=== PATIENT | female | born 1940 | race Two or more races ===

== ENCOUNTER 2021-03-08 10:52 | Emergency (ER) | payer MEDICARE, MEDICAID, SELFPAY ==
--- NOTE | ~2021-03-08 | CT_ITS ---
EXAMINATION: CT HEAD WITHOUT CONTRAST (STROKE PROTOCOL) CLINICAL INFORMATION: Stroke protocol. COMPARISON: None TECHNIQUE: Contiguous axial imaging was performed from the skull base to vertex without intravenous administration of contrast. This CT examination was performed using dose optimization techniques as appropriate, variously including the following: *Automated exposure control *Adjustment of mA and/or kV according to patient size (this includes techniques or standardized protocols for targeted exams where dose is matched to indication/reason for exam; i.e. extremities or head) *Use of iterative reconstruction technique DLP: 531 mGy-cm FINDINGS: There is some motion artifact present. Patient is status post right frontal/parietal/temporal craniotomy with aneurysm clip seen in place. There are regions of encephalomalacia noted, most prominent within the right temporal fossa which are likely chronic with no intracranial hemorrhage or significant mass effect or midline structure shift identified. There is prominence of the ventricles, sulci, and cisterns consistent with atrophic change. Visualized paranasal sinuses and mastoid air cells unremarkable. CT/CT head for stroke IMPRESSION: Status post right frontal/parietal/temporal craniotomy with aneurysm clip in place and regions of encephalomalacia likely postoperative in nature. No significant mass effect or intracranial hemorrhage appreciated. This critical result was discussed with Dr. Nina at 11:10 AM hours on March 08, 2021. It was ascertained that the content and urgency of the report was understood at the time of direct communication.
--- NOTE | ~2021-03-08 | XR_ITS ---
EXAMINATION: XR CHEST CLINICAL INFORMATION: Left-sided weakness. COMPARISON: None TECHNIQUE: Frontal view of the chest was obtained. FINDINGS: Kyphotic positioning is suboptimal. A 0.8 cm radiopaque density overlies the right apex laterally. The lungs otherwise clear. The heart and mediastinal structures are unremarkable. XR/XR chest 1V IMPRESSION: Probable calcified granuloma overlying the right apex laterally. No acute cardiopulmonary process.
--- NOTE | 2021-03-08 10:57 | ECG_ITS ---
Test Reason : ?STROKE Blood Pressure : / mmHG Vent. Rate : 094 BPM Atrial Rate : 094 BPM P-R Int : 174 ms QRS Dur : 152 ms QT Int : 406 ms P-R-T Axes : 055 -02 118 degrees QTc Int : 507 ms Normal sinus rhythm Left bundle branch block Abnormal ECG No previous ECGs available Referred By: Eris Nina Electronically Signed By:CECILY MCNAMARA MD
[2021-03-08 10:59] VITALS: BP 118/87; PULSE 100; O2SAT 99
--- NOTE | 2021-03-08 11:04 | ED.NEUROSD ---
HPI - Neuro Symptoms/Deficit General Chief Complaint: Altered Mental Status Stated Complaint: arm weakness/eye twitching Time Seen by Provider: 03/08/21 10:56 Source: patient, family (Daughter) and EMS Mode of arrival: EMS Limitations: no limitations History of Present Illness HPI Narrative: 80-year-old female came in by EMS for evaluation of stroke. 80-year-old female with baseline dementia engine speaking only, came from long-term for left-sided focal seizure and twitching of the face, and left upper extremities weakness, patient recently had seizure activity was seen at [facility], then was transferred to [facility] where able to stop the seizure activity. Patient is known to have history of ruptured cerebral aneurysm, status post clipping the aneurysm, with residual left hemiparesis. Patient last seen normal was last night, when she woke up this morning patient had left facial twitching with worsening of the left-sided hemiparesis. Related Data Allergies Allergy/AdvReac Type Severity Reaction Status Date / Time No Known Allergies Allergy Verified 03/08/21 10:56 Review of Systems Review of Systems: All other systems are reviewed and are negative Constitutional: Reports as per HPI and Reports no additional constitutional complaints Eyes: Reports as per HPI and Reports no additional eye complaints Reports system reviewed and no additional complaints, except as documented Cardiovascular: Reports as per HPI and Reports no additional cardiovascular complaints Respiratory: Reports as per HPI and Reports no additional respiratory complaints Gastrointestinal: Reports as per HPI and Reports no additional gastrointestinal complaints Genitourinary: Reports no additional female genitourinary complaints Musculoskeletal: Reports no additional musculoskeletal complaints Skin/Breast: Reports system reviewed and no additional complaints, except as docu Psychiatric: Reports no additional psychiatric complaints Endocrine: Reports no additional endocrine complaints Hematologic/Lymphatic: Reports no additional hematologic/lymphatic complaints Allergic/Immunologic: Reports no additional allergic/immunologic complaints Reports system reviewed and no additional complaints, except as documented and Reports Abnormal speech present [facility] Social History Social History Alcohol intake: never Patient Tobacco Use Status: Never used Tobacco Use of substances other than those prescribed or required for medical reasons: No Advance Directives: Yes Advance Directives Information Provided: Yes Advance Directives on File: No Physical Exam Vital Signs: Vital Signs: Last Vital Signs Temp 98.1 F 03/08/21 11:07 Pulse 96 03/08/21 14:52 Resp 16 07/24/21 14:52 BP 119/69 03/08/21 14:52 Pulse Ox 98 03/08/21 14:52 Body Mass Index 25.4 Vital signs have been reviewed as appeared to be correct. Blood pressure normal. Heart rate normal. Respiration rate normal. Temperature normal. Oxygen saturation normal. Appearance: Left facial focal seizure, patient to not regard examiner or family. Head: Normal external exam. Normocephalic. Atraumatic. No [place] signs noted. No raccoon eyes noted Eyes: PERRLA. EOMI. Conjunctiva and sclera normal. Eyelids normal. ENT: TM's Normal. Pharynx normal. Uvula midline. Moist mucous membranes. No trismus noted. No drooling noted. No muffled voice noted. Neck: Normal inspection. Neck supple. FROM. No adenopathy. Thyroid Normal. No meningeal signs. No neck mass noted. CVS: Normal heart rate and rhythm. Heart sound normal. No murmurs noted. Pulses normal throughout. Respiratory: No respiratory distress. Painless inspiration. Breath sounds normal. No wheezes/rales/rhonchi noted. Chest nontender. No accessory muscle usage noted or decreased air movement noted. Abdomen: Soft and nontender. Bowel sounds normal in all 4 quadrants. No distention noted. No organomegaly noted. No visible injury noted. Back: No CVA tenderness. Full range of motion noted. Skin: Skin warm and dry. Normal skin color. Normal skin turgor. No rashes/lesions/lacerations noted. Extremities: No lower extremity edema. Extremities exhibit normal range of motion. Extremities nontender. Neuro: Left facial focal seizure, no preferred visual gaze, left upper extremities weakness. Course Course Course Narrative: Assessment and plan. 80-year-old female history of ruptured cerebral aneurysm status post craniotomy patient is taking lacosamide 200 mg b.i.d. for seizure, brought in with persistent left facial focal seizure and worsening of left hemiparesis for over our of seizure activity, seizure activity were able to be broken by 2 doses of 2 mg of Ativan in the emergency department, patient now is sleeping with no focal seizure activity. Family at the bedside for interpretation. Reevaluation(s) Reevaluation #1: Record was obtained from [facility] patient had recent change of her seizure medication in the past now patient is on Vimpat 200 mg b.i.d.. Time: 12:47 Reevaluation #2: Case discussed with Dr. Godinez who recommended to transfer the patient for continuous EEG monitoring. Reevaluation #3: Case discussed with multiple doctors at [facility], who accepted the patient to ICU at [facility] and recommended to load the patient with Keppra 30 milligram/kg. Patient will be accepted by [facility] - Neuro Symptoms/Deficit Lab Data Attestation: I reviewed the patient's lab results. Result diagrams: 03/08/21 11:33 03/08/21 11:33 Labs: Lab Results 03/08/21 03/08/21 03/08/21 Range/Units 11:33 11:33 11:33 WBC 5.9 (4.8-10.8) X10*3/uL RBC 3.25 L (4.20-5.50) X10*6/uL Hgb 10.1 L (12.0-16.0) g/dl Hct 31.0 L (37-47) % MCV 95.4 (80-98) fL MCH 31.1 (27.0-33.0) pg MCHC 32.6 (31.0-35.0) g/dl RDW 15.7 (11.0-16.0) % Plt Count 125 L (160-400) X10*3/uL MPV 10.3 (9.4-12.3) fL Immature Gran % (Auto) 0.3 (0.0-0.4) % Neut % (Auto) 57.5 (45-73) % Lymph % (Auto) 32.4 (20-40) % Elmore % (Auto) 6.6 (2-11) % Eos % (Auto) 2.7 (0-4) % Baso % (Auto) 0.5 (0-2) % Lymph # (Auto) 1.9 (1.2-4.9) X10*3/uL Elmore # (Auto) 0.4 (0.1-1.2) X10*3/uL Eos # (Auto) 0.2 (0.0-0.4) X10*3/uL Baso # (Auto) 0.0 (0.0-0.2) X10*3/uL Abs Immat Gran (auto) 0.02 (0.00-0.03) X10*3/uL Absolute Neuts (auto) 3.4 (2.0-8.3) X10*3/uL Absolute Nucleated RBC 0.000 (0.0-0.012) X10*3/uL Nucleated RBC % (auto) 0.0 (0.0-0.2) /100WBC PT (9.9-13.0) SEC INR (0.9-1.1) APTT (24.1-38.0) SEC Sodium 135 (135-145) mmol/L Potassium 4.2 (3.3-5.1) mmol/L Chloride 102 (96-108) mmol/L Carbon Dioxide 25 (22-29) mmol/L Anion Gap 12 (12-20) BUN 13 (9-16) mg/dL Creatinine 0.96 (0.5-1.4) mg/dL Estim Creat Clear Calc 38.5 Estimated GFR 56 POC Glucose (60-115) mg/dL Random Glucose 212 H (60-115) mg/dL Calcium 10.0 (8.4-10.2) mg/dL Total Creatine Kinase 34 (26-140) U/L Troponin I High Sens 10.6 (<3.5-17.0) ng/L Phenytoin Cancelled 03/08/21 03/08/21 03/08/21 Range/Units 12:32 12:32 14:58 WBC (4.8-10.8) X10*3/uL RBC (4.20-5.50) X10*6/uL Hgb (12.0-16.0) g/dl Hct (37-47) % MCV (80-98) fL MCH (27.0-33.0) pg MCHC (31.0-35.0) g/dl RDW (11.0-16.0) % Plt Count (160-400) X10*3/uL MPV (9.4-12.3) fL Immature Gran % (Auto) (0.0-0.4) % Neut % (Auto) (45-73) % Lymph % (Auto) (20-40) % Elmore % (Auto) (2-11) % Eos % (Auto) (0-4) % Baso % (Auto) (0-2) % Lymph # (Auto) (1.2-4.9) X10*3/uL Elmore # (Auto) (0.1-1.2) X10*3/uL Eos # (Auto) (0.0-0.4) X10*3/uL Baso # (Auto) (0.0-0.2) X10*3/uL Abs Immat Gran (auto) (0.00-0.03) X10*3/uL Absolute Neuts (auto) (2.0-8.3) X10*3/uL Absolute Nucleated RBC (0.0-0.012) X10*3/uL Nucleated RBC % (auto) (0.0-0.2) /100WBC PT 12.5 (9.9-13.0) SEC INR 1.1 (0.9-1.1) APTT 32.3 (24.1-38.0) SEC Sodium (135-145) mmol/L Potassium (3.3-5.1) mmol/L Chloride (96-108) mmol/L Carbon Dioxide (22-29) mmol/L Anion Gap (12-20) BUN (9-16) mg/dL Creatinine (0.5-1.4) mg/dL Estim Creat Clear Calc Estimated GFR POC Glucose 87 (60-115) mg/dL Random Glucose (60-115) mg/dL Calcium (8.4-10.2) mg/dL Total Creatine Kinase (26-140) U/L Troponin I High Sens (<3.5-17.0) ng/L Phenytoin < 0.5 L* Imaging Data CT scan - head: Radiologist's impression: Status post right frontal/parietal/temporal craniotomy with aneurysm clip in place and regions of encephalomalacia likely postoperative in nature. No significant mass effect or intracranial hemorrhage appreciated. Chest x-ray: Radiologist's impression: Probable calcified granuloma overlying the right apex laterally. No acute cardiopulmonary process. ECG Data Interpretation: Normal sinus rhythm at 65 beats per minutes, normal intervals, normal axis deviation, no ST-T changes. Critical Care Time Critical Care Time Critical Care Time: Yes Total Critical Care Time: 60 Attestation: I spent 60 minutes providing critical care service to the patient, this including time spent at the bedside to evaluate the patient, reassess the patient, monitoring vital signs, review labs, and radiographic studies, counseling the patient/family, discussing the case with consultants, disposition the patient. Discharge Plan Discharge Clinical Impression: Status epilepticus Patient Disposition: [facility] Transfer Details: ICU at [facility]
[2021-03-08 11:07] VITALS: BP 117/68; BP 118/87; PULSE 100; PULSE 97; RESP 16; TEMP 36.7; O2SAT 98; O2SAT 99; BMI 25.4
[2021-03-08] MEDS: LORazepam 2 MG/ML VIAL IVPUSH ×3 (11:37→15:23)
[2021-03-08 11:43] LABS: MANUAL DIFF FLAG NO
[2021-03-08 11:44] LABS: Basophils Percent Auto 0.5 % (0-2); Eosinophils Absolute Auto 0.2 X10*3/uL (0.0-0.4); Eosinophils Percent Auto 2.7 % (0-4); Hemoglobin 10.1 g/dl (12.0-16.0); Imm Gran Abs Auto 0.02 X10*3/uL (0.00-0.03); Imm Gran Pct Auto 0.3 % (0.0-0.4); Lymphocytes Absolute Auto 1.9 X10*3/uL (1.2-4.9); Lymphocytes Percent Auto 32.4 % (20-40); Mean Corpuscular HGB Conc 32.6 g/dl (31.0-35.0); Mean Corpuscular Hemoglobin 31.1 pg (27.0-33.0); Mean Corpuscular Volume 95.4 fL (80-98); Mean Platelet Volume 10.3 fL (9.4-12.3); Monocytes Absolute Auto 0.4 X10*3/uL (0.1-1.2); Monocytes Percent Auto 6.6 % (2-11); Neutrophils Absolute Auto 3.4 X10*3/uL (2.0-8.3); Neutrophils Percent Auto 57.5 % (45-73); Platelet Count 125 X10*3/uL (160-400); Red Blood Count 3.25 X10*6/uL (4.20-5.50); Red Cell Distribution Width 15.7 % (11.0-16.0); White Blood Count 5.9 X10*3/uL (4.8-10.8)
[2021-03-08 12:03] LABS: Anion Gap 12 (12-20); Blood Urea Nitrogen 13 mg/dL (9-16); Carbon Dioxide 25 mmol/L (22-29); Chloride 102 mmol/L (96-108); Creatinine Clr Calc Pharmacy 38.5; Estimated Glomerular Filt Rate 56; Glucose Random 212 mg/dL (60-115); Potassium 4.2 mmol/L (3.3-5.1); Sodium 135 mmol/L (135-145)
[2021-03-08 12:10] LABS: Troponin-I High Sensitivity 10.6 ng/L (<3.5-17.0)
[2021-03-08 12:44] LABS: INTERNATIONAL NORM RATIO 1.1 (0.9-1.1); Prothrombin Time 12.5 SEC (9.9-13.0)
[2021-03-08 12:47] LABS: Partial Thromboplastin Time 32.3 SEC (24.1-38.0)
[2021-03-08 13:02] VITALS: BP 105/61; PULSE 93; RESP 14; O2SAT 97
[2021-03-08 13:21] LABS: Phenytoin Dilantin < 0.5 ug/mL (10.0-20.0)
--- NOTE | 2021-03-08 14:35 | PC.NURSE ---
pt sent from [facility]. She is Fernando speaking only, family at bedside for history. They states she does not speak much. They also report pt has a seizure HX and when she has seizures the activity looks much like how pt presented today, with jerking or twitching facial movements. Pt does not answer family questions, difficult to assess her mental status.She was medicated and was then sleeping.
[2021-03-08 14:52] VITALS: BP 119/69; PULSE 96; RESP 16; O2SAT 98
[2021-03-08 15:01] LABS: Glucose, Whole Blood 87 mg/dL (60-115)
--- NOTE | 2021-03-08 15:16 | PC.NURSE ---
Called [facility] and requested Med req be sent. Med req was not sent. Called [facility] again, requested Med Req be sent. staff there states they will send the list as soon as the nurse there prints it. Asked staff to pkeri lopez and send the list.
--- NOTE | 2021-03-08 15:18 | PC.NURSE ---
pt was turned, repositioned and cleaned for inc episode of urine.
--- NOTE | 2021-03-08 15:24 | PC.NURSE ---
pt having twitching facial movements and has been medicated with ativan
[2021-03-08 15:53] LABS: COVID-19 Test Negative (Negative)
--- NOTE | 2021-03-08 16:49 | PC.NURSE ---
pt accepted at [facility] n[facility]u rm 15 nurse to nurse [phone]
[2021-03-08 17:31] VITALS: BP 128/69; PULSE 97; RESP 16; O2SAT 98
--- NOTE | 2021-03-08 17:37 | PC.NURSE ---
ATTEMPTED TO CALL REPORT TO [facility] icu, NURSE THERE REPORTS SHE WILL CALL BACK AND CANNOT TAKE REPORT AT THIS TIME. ems HAS ARRIVED, REPORT TO ems. pT MOVED TO ems STRETCHER
== END 2021-03-08 18:06 | disposition short-term general hospital (02) ==
PROVIDERS: Emergency Provider Emergency Medicine; PCP Nurse Practitioner Family
DX: G40.901 Epilepsy, unspecified, not intractable, with status epilepticus (principal); R41.82 Altered mental status, unspecified; Z20.822 Contact with and (suspected) exposure to COVID-19
CPT/HCPCS: 36415; 70450; 71045; 80048; 80185; 82550; 82947; 84484; 85025; 85610; 85730; 87635; 93005; 96374; 96375; 96376; 99285; 99291; J1953; J2060